=== PATIENT | female | born 1965 | race Caucasian/White ===

== ENCOUNTER → 2018-04-18 | Outpatient (CLI) | payer OTHER ==
--- NOTE | 2018-04-18 17:55 | RAD ---
EXAM: AP and lateral views of the right knee DATE: 04/18/2018 11:00 AM INDICATION: CHRONIC RIGHT KNEE PAIN. NO KNOWN INJURY COMPARISON: No Prior FINDINGS/ IMPRESSION: No evidence of acute fracture or dislocation. Joint spaces are preserved without significant degenerative/proliferative change. No right knee joint effusion. Electronically signed by: Nikko Bustillo MD (04/18/2018 5:52 PM) [facility]
== END | disposition home or self-care (01) ==
LOC: RAD 10:45
DX: M25.561 Pain in right knee (principal); G89.29 Other chronic pain
CPT/HCPCS: 73560